=== PATIENT | female | born 1995 | race Caucasian/White ===

== ENCOUNTER 2017-12-03 15:33 | Emergency (ER) | payer OTHER ==
[2017-12-03 18:10] LABS: URINE HCG POC HCG NEGATIVE (Negative)
== END 2017-12-03 19:05 | disposition home or self-care (01) ==
LOC: ER 15:33
DX: S30.0XXA Contusion of lower back and pelvis, initial encounter (principal); W10.9XXA Fall (on) (from) unspecified stairs and steps, initial encounter; Y93.89 Activity, other specified; Y92.89 Other specified places as the place of occurrence of the external cause; Y99.8 Other external cause status
CPT/HCPCS: 72100; 72220; 81025; 99284

== ENCOUNTER 2018-07-02 20:20 | Emergency (ER) | payer OTHER ==
[~2018-07-02] VITALS: Ht 175.3 cm; Wt 63.5 kg
[~2018-07-02 20:20] MED LIST: BENZ100C PO; IBUP-1060 PO; PRED50TA PO; VENTOLIN HFA18 GM INH
--- NOTE | 2018-07-02 21:48 | PHYS DOC ---
Past Medical History Past Medical History: Anxiety, Depression Past Surgical History: No Surgical History Alcohol Use: Occasionally Drug Use: None Adult General Chief Complaint Chief Complaint: ITCHING HPI HPI 23-year-old female presents for evaluation of rash from contact with poison hilary plant. She reports ongoing symptoms for several days. Review of Systems Review of Systems Constitutional: Denies fever or chills [] Eyes: Denies change in visual acuity, redness, or eye pain [] HENT: Denies nasal congestion or sore throat [] Respiratory: Denies cough or shortness of breath [] Cardiovascular: No additional information not addressed in HPI [] GI: Denies abdominal pain, nausea, vomiting, bloody stools or diarrhea [] : Denies dysuria or hematuria [] All other systems were reviewed and found to be within normal limits, except as documented in this note. Current Medications Current Medications Current Medications Medications (Trade) Dose Ordered Sig/Franca Start Time Stop Time Status Last Admin Dose Admin Dexamethasone Sodium Phosphate (Decadron) 10 mg 1X ONCE 07/02/18 22:00 07/02/18 22:01 Allergies Allergies Allergies Coded Allergies Type Severity Reaction Last Updated Verified No Known Drug Allergies 02/06/14 No Physical Exam Physical Exam Constitutional: Well developed, well nourished, no acute distress, non-toxic appearance. [] Skin: Erythematous vesicular rash to extremities consistent with contact dermatitis Extremities: No tenderness, no cyanosis, no clubbing, ROM intact, no edema. [] Neurologic: Alert and oriented X 3, normal motor function, normal sensory function, no focal deficits noted. [] Psychologic: Affect normal, judgement normal, mood normal. [] EKG EKG [] Radiology/Procedures Radiology/Procedures [] Course & Med Decision Making Course & Med Decision Making Pertinent Labs and Imaging studies reviewed. (See chart for details) [Patient was given IM Decadron, prescription for Medrol Dosepak and triamcinolone cream, recommend follow-up with primary care doctor in 2-3 days, return to ER for new or worsening symptoms.] Dragon Disclaimer Dragon Disclaimer This electronic medical record was generated, in whole or in part, using a voice recognition dictation system. Departure Departure Impression: Primary Impression: Contact dermatitis Disposition: HOME, SELF-CARE Condition: STABLE Referrals: NO PCP (PCP) Patient Instructions: Contact Dermatitis Scripts Triamcinolone Acetonide (TRIAMCINOLONE ACETONIDE 0.5% CREAM) 15 Gm Cream..g. 1 SINCERE TP BID, #30 GM 0 Refills Prov: GURMEET GUTIERRES APRN 07/02/18 Methylprednisolone (MEDROL) 4 Mg Tab.ds.pk 1 PKG PO UD, #1 PKG 0 Refills Prov: GURMEET GUTIERRES APRN 07/02/18 GURMEET GUTIERRES APRN Jul 02, 2018 21:48
[2018-07-02] MEDS ORDERED: TRIA15CR TP (21:51)
[2018-07-02] MEDS ORDERED: METH4TAB2 PO (21:51)
[2018-07-02 21:56] VITALS: BP 111/63
[2018-07-02] MEDS ORDERED: DEXAMETHASONE SOD PHOS 20 MG/5 ML VIAL. IV ONE (22:00)
== END 2018-07-02 22:02 | disposition home or self-care (01) ==
LOC: ER 20:20
DX: L23.9 Allergic contact dermatitis, unspecified cause (principal)
CPT/HCPCS: 96374; 99284; J1100

== ENCOUNTER 2021-06-19 14:04 | Emergency (ER) | payer BC, OTHER ==
[~2021-06-19] VITALS: Ht 175.3 cm; Wt 68.0 kg
[~2021-06-19 14:04] MED LIST changes: +METH4TAB2 PO; +TRIA15CR TP
--- NOTE | 2021-06-19 14:26 | ED.ADGEN ---
Past Medical History Past Medical History: No Pertinent History Past Surgical History: No Surgical History Smoking Status: Current Every Day Smoker Alcohol Use: None Drug Use: None General Adult EDM: Chief Complaint: ANIMAL BITE HPI: HPI: Patient is a 26 year old female coming in after a dog bite to her lips and chin. Patient states it was her dog and it bit her about 30 minutes prior to arrival. States her dogs vaccinations are up-to-date, is not sure when her last tetanus was. Thinks it was greater than 5 years. Review of Systems: Review of Systems: All other systems within normal limits except for as noted in the HPI Current Medications: Current Medications Medications (Trade) Dose Ordered Sig/Franca Start Time Stop Time Status Last Admin Dose Admin Amoxicillin/ Clavulanate Potassium (Augmentin 875/ 125mg) 1 tab 1X ONCE 06/19/21 16:15 06/19/21 16:16 DC Diphtheria/ Tetanus/Acell Pertussis (ADACEL TDap SYRINGE) 0.5 ml ONCE ONCE 06/19/21 15:00 06/19/21 15:01 DC 06/19/21 14:54 0.5 ML Fentanyl Citrate (Fentanyl 2ml Vial) 75 mcg 1X ONCE 06/19/21 14:45 06/19/21 14:46 DC 06/19/21 14:53 75 MCG Tetracaine/ Epinephrine/ Lidocaine (Let (Zyof-Dyzemwc-Cllmj) Gel) 3 ml 1X ONCE 06/19/21 14:30 06/19/21 14:31 DC 06/19/21 14:50 3 ML Allergies: Allergies: Allergies Coded Allergies Type Severity Reaction Last Updated Verified No Known Drug Allergies 02/06/14 No Physical Exam: PE: Constitutional: Well developed, well nourished, no acute distress, non-toxic appearance. [] HENT: Normocephalic, atraumatic, bilateral external ears normal, nose normal. Removal of left front of gingiva above front 2 teeth, left lower tooth removed, right lower tooth partially dislodged [] Eyes: PERRLA, conjunctiva normal, no discharge. [] Neck: No rigidity, supple, no stridor. [] Cardiovascular: Regular rate and rhythm, brisk cap refill [] Lungs & Thorax: Non labored symmetric respirations, no tachypnea or respiratory distress [] Abdomen: Soft, nondistended. Skin: Warm, dry, no erythema, no rash. Multiple abrasions to chin and right upper lip, puncture wound to submandibular area [] Back: Unremarkable Extremities: No deformities, range of motion grossly intact, no lower extremity edema [] Neurologic: Alert and oriented X 3, no focal deficits noted. [] Psychologic: Affect normal, judgement normal, mood normal. [] Current Patient Data: Vital Signs: Vital Signs Date Time Temp Pulse Resp B/P (MAP) Pulse Ox O2 Delivery O2 Flow Rate FiO2 06/19/21 14:53 Room Air 06/19/21 14:10 98.4 70 24 121/83 (79) 98 98.4 EKG: EKG: [] Heart Score: C/O Chest Pain: No Risk Factors: Risk Factors: DM, Current or recent (<one month) smoker, HTN, HLP, family history of CAD, obesity. Risk Scores: Score 0 - 3: 2.5% MACE over next 6 weeks - Discharge Home Score 4 - 6: 20.3% MACE over next 6 weeks - Admit for Clinical Observation Score 7 - 10: 72.7% MACE over next 6 weeks - Early Invasive Strategies Radiology/Procedures: Radiology/Procedures: [facility] [address] [place] [address] IMAGING REPORT Signed PATIENT: RADHA HAYES ACCOUNT: [id number] : 1995 LOCATION: ER AGE: 26 SEX: F EXAM STATUS: REG ER ORD. PHYSICIAN: RYAN FRANCES MD REASON: dog bite, UPPER LIP AND UNDER CHIN PROCEDURE: CT MAXILLOFACIAL WO CONTRAST Exam performed: CT maxillofacial. Indication: Dog bite operative changes. Date of service: 06/19/2021,Comparison: None available Technique: Contiguous acquisitions are obtained through the maxillofacial structures without IV contrast. Coronal reformatted images are obtained and reviewed. Findings: There is soft tissue swelling is observed is emphysema in the chest and submandibular region from a recent reported outlined. No underlying fracture is seen. There is a missing canine tooth on the left. There is normal aeration of both frontal, ethmoid, maxillary and sphenoid sinuses. No air-fluid level, mucoperiosteal thickening or mucus retention cyst is identified. The bony orbital margins and the intraocular contents are bilat erally symmetric and unremarkable. Both ostiomeatal complexes are preserved. Nasal bones and zygomatic arches are preserved.No abnormal fluid collections or hematoma formation seen. The visualized portion of the brain is normal. Impression: 1. Soft tissue swelling and emphysema in the chin and submandibular region with increasing left canine tooth. PQRS Compliance Statement: One or more of the following individualized dose reduction techniques were utilized for this examination: 1. Automated exposure control 2. Adjustment of the mA and/or kV according to patient size 3. Use of iterative reconstruction technique Electronically signed by: Suzette Ann MD (06/19/2021 3:46 PM) [facility] DICTATED and SIGNED BY: SUZETTE ANN MD DATE: 06/19/21 [id number] [] Impression: Wounds on skin was irrigated thoroughly with saline and closed with Steri-Strips due to CT images showing subcutaneous air in the high risk for infection due to nature of the wounds. Course & Med Decision Making: Course & Med Decision Making Tetanus updated, animal control report facilitated by security. Discussed with Dr. Montalvo, oral maxillary surgery, does not think that the remaining tooth is salvageable. Recommends removing it versus following up with an emergency dentist. Do not have dental cement available in this facility to form a bridge. Discussed options of removal of the tooth in the emergency department versus following up with an emergency dentist. Patient states she would like to go see emergency dentist after her lacerations repaired in the emergency department. Mor Disclaimer: Mor Disclaimer: This electronic medical record was generated, in whole or in part, using a voice recognition dictation system. Departure Departure Impression: Primary Impression: Dental injury Additional Impression: Dog bite of face Disposition: HOME / SELF CARE / HOMELESS Condition: STABLE Referrals: NO PCP (PCP) Patient Instructions: Chlorhexidine oral rinse Additional Instructions: Emergency Dentist Address: [address] [place] [address] Scripts Hydrocodone Bit/Acetaminophen (HYDROCODONE-APAP 5-325 ) 1 Tab Tablet 1 TAB PO PRN Q6HRS PRN for PAIN for 3 Days, #10 TAB 0 Refills Prov: RYAN FRANCES MD 06/19/21 Chlorhexidine Gluconate (CHLORHEXIDINE GLUCONATE) 118 Ml Liquid 1 SINCERE TP PRN for mouth wash for 2 Days, #237 ML 0 Refills Swish and spit after meals Prov: RYAN FRANCES MD 06/19/21 Amoxicillin/Potassium Clav (AUGMENTIN 875-125 TABLET) 1 Each Tablet 1 TAB PO Q12HR for antibiotic for 10 Days, #20 TAB Prov: RYAN FRANCES MD 06/19/21 Problem Qualifiers RYAN FRANCES MD Jun 19, 2021 14:26
[2021-06-19] MEDS ORDERED: LIDOCAINE/EPI/TETRACAINE TOPICAL GEL 3 ML. TP ONE (14:30)
[2021-06-19] MEDS ORDERED: fentaNYL PF VIAL 100 MCG/2 ML VIAL IM ONE (14:45)
[2021-06-19] MEDS ORDERED: DIPH,PERTUSS(ACELL),TET VAC/PF 0.5 ML SYRINGE. VAX IM ONE (15:00)
--- NOTE | 2021-06-19 15:48 | RAD ---
Exam performed: CT maxillofacial. Indication: Dog bite operative changes. Date of service: 06/19/2021,Comparison: None available Technique: Contiguous acquisitions are obtained through the maxillofacial structures without IV contr ast. Coronal reformatted images are obtained and reviewed. Findings: There is soft tissue swelling is observed is emphysema in the chest and submandibular region from a r ecent reported outlined. No underlying fracture is seen. There is a missing canine tooth on the left. There is normal aeration of both frontal, ethmoid, maxillary and sphenoid sinuses. No air-fluid leve l, mucoperiosteal thickening or mucus retention cyst is identified. The bony orbital margins and the intraocular contents are bilaterally symmetric and unremarkable. Both ostiomeatal complexes are pres erved. Nasal bones and zygomatic arches are preserved.No abnormal fluid collections or hematoma form ation seen. The visualized portion of the brain is normal. Impression: 1. Soft tissue swelling and emphysema in the chin and submandibular region with increasing left canin e tooth. PQRS Compliance Statement: One or more of the following individualized dose reduction techniques were utilized for this examinat ion: 1. Automated exposure control 2. Adjustment of the mA and/or kV according to patient size 3. Use of iterative reconstruction technique Electronically signed by: Suzette Ann MD (06/19/2021 3:46 PM) [facility]
[2021-06-19] MEDS ORDERED: AMOXICILLIN/K CLAV 875/125MG TABLET. PO ONE (16:15)
[2021-06-19] MEDS ORDERED: AMOX1TAB61 PO (16:27)
[2021-06-19] MEDS ORDERED: HYDR-2761 PO (16:27)
[2021-06-19] MEDS ORDERED: CHLO118L3 TP (16:27)
[2021-06-19 16:37] VITALS: BP 109/77
== END 2021-06-19 16:44 | disposition home or self-care (01) ==
LOC: ER 14:04
DX: S00.81XA Abrasion of other part of head, initial encounter (principal); S00.511A Abrasion of lip, initial encounter; F17.200 Nicotine dependence, unspecified, uncomplicated; W54.0XXA Bitten by dog, initial encounter; Y93.89 Activity, other specified; Y92.89 Other specified places as the place of occurrence of the external cause; Y99.8 Other external cause status
CPT/HCPCS: 70486; 90471; 90715; 96372; 99284; J3010